=== PATIENT | male | born 1975 | race Hispanic/Latino ===

== ENCOUNTER 2018-06-17 13:27 | Inpatient (IN) | payer OTHER ==
[~2018-06-17] VITALS: Ht 172.7 cm; Wt 122.5 kg
[2018-06-17] MEDS ORDERED: DICLOFENAC75 MG PO (17:19)
[2018-06-17] MEDS ORDERED: METFORMIN HCL500 M2 PO (17:19)
[2018-06-17] MEDS ORDERED: IRON PO (17:21)
[2018-06-17] MEDS ORDERED: MUCUS RELIEF DM PO (17:22)
[2018-06-17] MEDS ORDERED: AFRIN NASAL SP0.05 % (17:23)
[2018-06-24] VITALS (8 sets, daily range): BP systolic 141–145; BP diastolic 74–83
[2018-06-25 00:59] VITALS: BP 105/69
[2018-06-25 04:18] VITALS: BP 97/67
[2018-06-25 05:12] LABS: HEMATOCRIT 37.3 % (39.0-50.0); HEMOGLOBIN 12.3 g/dl (14.0-18.0)
[2018-06-25 11:15] VITALS: BP 114/70
[2018-06-25 15:25] VITALS: BP 135/87
[2018-06-25 20:19] VITALS: BP 128/74
[2018-06-25 23:44] VITALS: BP 133/85
[2018-06-26 05:05] LABS: HEMATOCRIT 37.9 % (39.0-50.0); HEMOGLOBIN 12.6 g/dl (14.0-18.0); IMMATURE GRANULOCYTES 0.3 % (0.0-5.0); MEAN CELL VOLUME 89.6 fL CALC (80.0-100.0); MEAN CORPUSCULAR HGB 29.8 pG CALC (26.0-32.0); MEAN CORPUSCULAR HGB CONC 33.2 g/L CALC (32.0-36.0); NEUT# 6.65 thou/uL (1.82-7.42); RED BLOOD COUNT 4.23 mill/uL (4.70-6.10); RED CELL DISTRI WIDTH 12.4 % (11.5-15.5)
[2018-06-26 05:18] VITALS: BP 125/73
[2018-06-26 05:19] LABS: ALKALINE PHOSPHATASE 96 u/l (38-126); ANION GAP 14 (6-22 (CALC)); BILIRUBIN, TOTAL 0.7 mg/dL (0.0-1.4); BUN 8 mg/dL (9-20); BUN/CREATININE RATIO 11 (12-20 (CALC)); CARBON DIOXIDE 30 mmol/l (22-30); CHLORIDE 99 mmol/l (95-108); CREATININE 0.7 mg/dL (0.7-1.3); GFR > 60 ML/MIN (>=60 (CALC)); GFR FOR AFR.AMER. > 60 ML/MIN (>=60 (CALC)); MAGNESIUM 1.7 mg/dL (1.6-2.3); POTASSIUM 4.2 mmol/l (3.5-5.1); SGOT/AST 28 u/l (17-59); SGPT/ALT 43 u/l (21-72); SODIUM 139 mmol/l (137-146)
[2018-06-26 05:21] LABS: ALBUMIN 3.8 g/dL (3.2-5.0); TOTAL PROTEIN 7.8 g/dL (6.3-8.2)
[2018-06-26 07:35] VITALS: BP 129/79
[2018-06-26 11:30] VITALS: BP 107/50
[2018-06-26 15:50] VITALS: BP 106/59
[2018-06-26 19:30] VITALS: BP 110/72
[2018-06-27] VITALS: BP 115/78
[2018-06-27 04:31] VITALS: BP 137/78
[2018-06-27 05:23] LABS: HEMATOCRIT 36.5 % (39.0-50.0); HEMOGLOBIN 12.3 g/dl (14.0-18.0)
[2018-06-27 07:57] VITALS: BP 100/60
[2018-06-27 12:00] VITALS: BP 114/76
[2018-06-27] MEDS ORDERED: FERROUS SULFAT325 MG PO (13:49)
[2018-06-27] MEDS ORDERED: PERCOCET 10/31 COMBO PO ×2 (13:49→14:34)
[2018-06-27] MEDS ORDERED: ASPIRIN EC325 MG PO (13:49)
[2018-06-27] MEDS ORDERED: OXYCODO-APAP1 TA2 PO (14:36)
== END 2018-06-27 16:30 | disposition home or self-care (01) | DRG 470 ==
LOC: MS2 06-24 07:30
PROVIDERS: ADMIT Orthopaedic Surgery; ATTEND Internal Medicine Nephrology
PROC: 0SRD0J9 Replacement of Left Knee Joint with Synthetic Substitute, Cemented, Open Approach (ICD-10-PCS; principal; 2018-06-24)
DX: M17.12 Unilateral primary osteoarthritis, left knee (principal); Z68.41 Body mass index [BMI] 40.0-44.9, adult; I10 Essential (primary) hypertension; E11.9 Type 2 diabetes mellitus without complications; E78.5 Hyperlipidemia, unspecified; D50.9 Iron deficiency anemia, unspecified; E66.9 Obesity, unspecified; Z79.1 Long term (current) use of non-steroidal anti-inflammatories (NSAID); Z87.891 Personal history of nicotine dependence; Z79.4 Long term (current) use of insulin
CPT/HCPCS: C1776

== ENCOUNTER 2023-06-14 07:04 | Emergency (ER) | payer SELFPAY ==
[~2023-06-14] VITALS: Ht 172.7 cm; Wt 120.0 kg
[~2023-06-14 07:04] MED LIST: AFRIN NASAL SP0.05 %; ASPIRIN EC325 MG PO; DICLOFENAC75 MG PO; FERROUS SULFAT325 MG PO; IRON PO; METFORMIN HCL500 M2 PO; MUCUS RELIEF DM PO; OXYCODO-APAP1 TA2 PO; PERCOCET 10/31 COMBO PO
[2023-06-14] MEDS ORDERED: VOLTAREN - GENE75 MG PO (08:22)
[2023-06-14] MEDS ORDERED: ORPHENADRINE100 MG PO (08:22)
[2023-06-14 08:25] VITALS: BP 144/91
== END 2023-06-14 08:33 | disposition home or self-care (01) | DRG 563 ==
LOC: ED 07:04
DX: S39.012A Strain of muscle, fascia and tendon of lower back, initial encounter (principal)